=== PATIENT | female | born 1950 | race Caucasian/White ===

== ENCOUNTER → 2017-03-11 | Outpatient (CLI) | payer OTHER ==
--- NOTE | 2017-03-11 09:19 | CT ---
EXAMINATION TYPE: CT soft tissue neck wo con DATE OF EXAM: 03/11/2017 HISTORY: Dysphagia, something caught in throat near right neck base per patient. COMPARISON: NONE CT DLP: 547 mGycm. Automated Exposure Control for Dose Reduction was Utilized. TECHNIQUE: CT scan of the neck is performed without IV contrast due to iodine allergy. FINDINGS: Exam is noted suboptimal due to lack of IV contrast which limits evaluation for mucosal les ions and neck adenopathy. Airway: Thyroid is slightly heterogeneous and upper limits of normal in size. Airway is grossly paten t. There is 3 mm calcified nodule left upper lobe on axial image 66. Mild apical scarring is present bilaterally. Parotid/submandibular glands: No gross abnormality seen. Carotid/Vascular Structures: No suspicious calcified plaque at carotid bulb level bilaterally. Osseous Structures: There is grade 1 retrolisthesis of C5 on C6. There is moderate to severe spurring and disc space narrowing at this level. There is moderate disc space narrowing and mild spurring at C6-C7 level. Review of axial images shows uncovertebral facet degenerative changes bilaterally throug hout the cervical spine. Other: Visualized portion of proximal esophagus is felt within normal limits. No suspicious greater t jackson 1 cm neck adenopathy is clearly seen bilaterally. There is streak artifact from multiple cavitary fillings and root canals in the maxillary and mandibular teeth limiting evaluation at this level at the floor of mouth. IMPRESSION: No significant abnormality is seen to account for patient's symptoms.
== END | disposition home or self-care (01) ==
LOC: RADCTMAIN 07:09
PROVIDERS: ATTEND Otolaryngology
DX: R13.10 Dysphagia, unspecified (principal)
CPT/HCPCS: 70490

== ENCOUNTER → 2018-03-06 | Day surgery (SDC) | payer MEDICARE ==
[2018-03-03 11:11] VITALS: BMI 26.6
[~2018-03-06] MED LIST: BUPIVACAIN-EPI 0.5%-1:200,000 30 ML VIAL SQ ONE; DEXAMETHASONE SOD PHOS (MDV) 100 MG/10 ML VIAL ONE; DEXAMETHASONE SOD PHOSPHATE 10 MG/ML 1 ML VIAL IV ONE; EPINEPHrine 1 MG/ML (MDV) 30 ML VIAL IRRIGATION ONE; FAMOTIDINE 20 MG/2 ML VIAL IVP ONE; FLUORESCEIN STRIPS 1 MG STRIP MISCELLANE ONE; LACTATED RINGERS 1,000 ML IV SCH; LIDOCAINE 1% 20 ML VIAL (10MG/ML) FOR IV START INTRADERMA ONE; LIDOCAINE 1% INJ 10MG/ML (20 ML MDV) ONE; LIDOCAINE 1%-EPI 1:100,000 20 ML VIAL SQ ONE; MELOXICAM 7.5 MG TAB PO ONE; MIDAZOLAM 2 MG/2 ML VIAL IV PRN; MIDAZOLAM 2 MG/2 ML VIAL ONE; ONDANSETRON 4 MG/2 ML VIAL IVP ONE; PROPOFOL 10 MG/ML 20 ML VIAL IV ONE; SODIUM CHLORIDE 0.9% 1,000 ML IV ONE; SUCCINYLCHOLINE CHLORIDE 100 MG/5 ML SYR IV ONE; ceFAZolin IN SWFI 2 GM/20 ML SYRINGE IVP ONE; fentaNYL (PF) 50 MCG/ML 2 ML AMP ONE; metroNIDAZOLE-NS PMX 500 MG in SALINE 1 100ML.BAG IVPB ONE
[2018-03-06] MEDS: OXYMETAZOLINE 0.05% NASL SPRAY 1 SPRAY BOTTLE EA NOSTRIL SCH ×5 (10:18→10:41)
[2018-03-06 12:17] VITALS: TEMP 97
[2018-03-06] MEDS: fentaNYL (PF) 50 MCG/ML 2 ML AMP IV PRN ×2 (12:32→12:43)
--- NOTE | 2018-03-06 12:38 | P.OP ---
Date of Procedure: 03/06/18 Preoperative Diagnosis: Left nasal mass i.e. left inferior turbinate Recurring epistaxis Postoperative Diagnosis: Same Procedure(s) Performed: Endoscopic excisional biopsy of left nasal mass Anesthesia: ILEANAA Surgeon: Eladio Vang Estimated Blood Loss (ml): 0 Pathology: other (Left nasal mass) Condition: stable Disposition: PACU Indications for Procedure: Patient was having recurring epistaxis and was found have a left nasal mass surgical removal was recommended for treatment for biopsy purposes Operative Findings: Left nasal mass noted on the left inferior turbinate Description of Procedure: This patient underwent a general anesthetic and the nose was topically decongested. We entered the nose with a 0 Santiago vicki endoscope and a mass was noted on the left inferior turbinate. This was removed surgically under endoscopic visualization with a up-biting Blakesley and hemostasis was obtained with use of electrocoagulation. Utilized an insulated needle for coagulation of the surgical site for hemostasis purposes. The specimen was sent for pathology and hemostasis was complete. Patient tolerated this well and follow- up will be in one week. No packing was placed
[2018-03-06 13:17] VITALS: RESP 16
[2018-03-06 13:26] VITALS: BP 134/78; PULSE 67
== END | disposition home or self-care (01) ==
LOC: OR 09:06
PROVIDERS: ATTEND Otolaryngology
DX: R04.0 Epistaxis (principal); D18.09 Hemangioma of other sites; M19.90 Unspecified osteoarthritis, unspecified site; H93.19 Tinnitus, unspecified ear; Z79.2 Long term (current) use of antibiotics; E78.5 Hyperlipidemia, unspecified; Z87.891 Personal history of nicotine dependence; Z79.51 Long term (current) use of inhaled steroids; Z79.899 Other long term (current) drug therapy; Z91.041 Radiographic dye allergy status; Z88.7 Allergy status to serum and vaccine; Z88.8 Allergy status to other drugs, medicaments and biological substances; Z91.018 Allergy to other foods
CPT/HCPCS: 88305; 31237; J0171; J2250; J1100 ×2; J2405; J2001; J3010; J0330; J2704; J0690

== ENCOUNTER → 2018-04-29 | Outpatient (CLI) | payer MEDICARE ==
--- NOTE | 2018-04-29 09:24 | MM ---
Reason for exam: clinical finding. Last mammogram was performed 1 year ago. History: Patient is postmenopausal and history of other cancer. Family history of breast cancer in maternal aunt at age 65 and breast cancer in paternal aunt. Took estrogen for 22 years beginning at age 38. Physical Findings: Nurse did not find any significant physical abnormalities on exam. MG 3D Diag Mammo W/Cad YAKOV Bilateral CC and MLO view(s) were taken. Prior study comparison: April 25, 2017, bilateral MG 3d screening mammo w/cad. March 29, 2016, bilateral MG 3d screening mammo w/cad. There are scattered fibroglandular densities. There is no discrete abnormality right breast. No significant new findings when compared with previous films. These results were verbally communicated with the patient and result sheet given to the patient on 04/29/18. ASSESSMENT: Negative, BI-RAD 1 RECOMMENDATION: Routine screening mammogram of both breasts in 1 year.
== END | disposition home or self-care (01) ==
LOC: RADMAMWWP 07:47
PROVIDERS: ATTEND Family Medicine
DX: N63.10 Unspecified lump in the right breast, unspecified quadrant (principal)
CPT/HCPCS: 77066; G0279; 77062

== ENCOUNTER → 2018-12-11 | Outpatient (CLI) | payer MEDICARE ==
--- NOTE | 2018-12-11 08:37 | FL ---
EXAMINATION: Cervical and Thoracic Esophagram DATE OF EXAM: 12/11/2018 CLINICAL INDICATION: 68-year-old female with dysphagia. Complaining of food stuck in the upper esopha trupti. Recent scope showed inflamed tonsil tissue. Total images: 31. Total fluoroscopy time: 1 minute 32 seconds. COMPARISON: 07/21/2015 FINDINGS: The swallowing mechanism is normal. There is mild to moderate disc/endplate degenerative change mid t o lower cervical spine with mild anterior endplate spondylosis resulting in mild impressions on to th e posterior wall of the cervical esophagus. Otherwise, the hypopharyngeal anatomy is preserved. No fi lling defect within the vallecular space. The cervical and thoracic portions have a normal course and caliber. Mild tertiary peristaltic contractions are demonstrated. Primary and secondary peristaltic waves are slowed but appear intact. Mucosa is normal and no persistent filling defect is encountered. There is a tiny hiatal hernia. An episode of severe spontaneous gastroesophageal reflux is seen when the patient is an CARSON position. The contrast column reaches the upper thorax. IMPRESSION: 1. Tiny hiatal hernia with a spontaneous episode of severe gastroesophageal reflux to the upper thora x. 2. Anterior endplate spondylosis mid to lower cervical spine causing mild impressions onto the park warden ior wall of the cervical esophagus. 3. Mild dysmotility.
== END | disposition home or self-care (01) ==
LOC: RADUSWWP 07:48
PROVIDERS: ATTEND Otolaryngology
DX: K44.9 Diaphragmatic hernia without obstruction or gangrene (principal); K21.9 Gastro-esophageal reflux disease without esophagitis; K22.4 Dyskinesia of esophagus; Z91.041 Radiographic dye allergy status
CPT/HCPCS: 74220

== ENCOUNTER → 2019-03-25 | Outpatient (CLI) | payer MEDICARE ==
--- NOTE | 2019-03-25 14:53 | CT ---
EXAMINATION TYPE: CT soft tissue neck wo con DATE OF EXAM: 03/25/2019 HISTORY: Sore throat x couple of months. Vallecular mass per order. COMPARISON: NONE CT DLP: 291.8 mGycm. Automated Exposure Control for Dose Reduction was Utilized. TECHNIQUE: CT scan of the neck is performed without IV contrast, axial images are obtained, coronal and sagittal reformatted images are reviewed. FINDINGS: Lack of IV contrast is noted to Limited evaluation for mucosal lesions and subcentimeter ad enopathy Airway: Nasopharyngeal or oropharyngeal airways are patent. The epiglottis and vallecula appears wit hin normal limits seen best sagittal image 50. Piriform sinuses are symmetric axial image 46. Hypopha ryngeal airway is patent. Adjacent thyroid gland is within normal limits. Upper lungs are clear. Ther e are 2 calcified nodules are granulomas axial images 11 and 12 in the left upper lung. Parotid/subma ndibular glands: No gross abnormality seen. Carotid/Vascular Structures: No significant abnormality on noncontrast study Osseous Structures: Persistent grade 1 retrolisthesis C5 on C6. Persistent moderate to severe disc sp caroline narrowing at this level. Persistent moderate disc space narrowing C6-C7 level. Mild to moderate s purring at both levels redemonstrated. Other: Scattered prominent but subcentimeter lymph nodes throughout the neck bilaterally. Symmetric m aintenance of parapharyngeal fat axial image 65 noted. IMPRESSION: Primary vallecular mass not identified. No definitive adenopathy. No significant change f rom prior.
== END ==
LOC: RADCTMAIN 14:28
PROVIDERS: ATTEND Otolaryngology
DX: R22.1 Localized swelling, mass and lump, neck (principal)
CPT/HCPCS: 70490

== ENCOUNTER → 2019-03-25 | Outpatient (CLI) | payer MEDICARE ==
[2019-03-25 18:46] LABS: Rheumatoid Factor 9 IU/mL (0-15)
== END | disposition home or self-care (01) ==
LOC: LABWHC1 14:15
PROVIDERS: ATTEND Otolaryngology
DX: R53.83 Other fatigue (principal); M19.90 Unspecified osteoarthritis, unspecified site
CPT/HCPCS: 36415; 86038; 86431

== ENCOUNTER → 2019-06-19 | Outpatient (CLI) | payer MEDICARE ==
--- NOTE | 2019-06-19 13:03 | MM ---
Reason for exam: screening (asymptomatic). Last mammogram was performed 1 year and 2 months ago. History: Patient is postmenopausal and history of other cancer. Family history of breast cancer in maternal aunt at age 65 and breast cancer in paternal aunt. Took estrogen for 22 years beginning at age 38. Physical Findings: A clinical breast exam by your physician is recommended on an annual basis and results should be correlated with mammographic findings. MG 3D Screening Mammo W/Cad Bilateral CC and MLO view(s) were taken. Prior study comparison: April 29, 2018, bilateral MG 3d diag mammo w/cad YAKOV. April 25, 2017, bilateral MG 3d screening mammo w/cad. The breast tissue is heterogeneously dense. This may lower the sensitivity of mammography. There is no discrete abnormality. ASSESSMENT: Negative, BI-RAD 1 RECOMMENDATION: Routine screening mammogram of both breasts in 1 year.
== END | disposition home or self-care (01) ==
LOC: RADMAMWWP 07:31
PROVIDERS: ATTEND Family Medicine
DX: Z12.31 Encounter for screening mammogram for malignant neoplasm of breast (principal)
CPT/HCPCS: 77063; 77067

== ENCOUNTER 2019-07-22 10:05 | Day surgery (SDC) | payer MEDICARE ==
[2019-07-10 09:41] VITALS: BMI 27.4
[~2019-07-22 10:05] MED LIST changes: -BUPIVACAIN-EPI 0.5%-1:200,000 30 ML VIAL SQ ONE; -DEXAMETHASONE SOD PHOS (MDV) 100 MG/10 ML VIAL ONE; -DEXAMETHASONE SOD PHOSPHATE 10 MG/ML 1 ML VIAL IV ONE; -EPINEPHrine 1 MG/ML (MDV) 30 ML VIAL IRRIGATION ONE; -FAMOTIDINE 20 MG/2 ML VIAL IVP ONE; -FLUORESCEIN STRIPS 1 MG STRIP MISCELLANE ONE; +LIDOCAINE 1% (10MG/ML) FOR IV START INTRADERMA PRN; -LIDOCAINE 1% 20 ML VIAL (10MG/ML) FOR IV START INTRADERMA ONE; -LIDOCAINE 1% INJ 10MG/ML (20 ML MDV) ONE; -LIDOCAINE 1%-EPI 1:100,000 20 ML VIAL SQ ONE; -MELOXICAM 7.5 MG TAB PO ONE; -MIDAZOLAM 2 MG/2 ML VIAL IV PRN; -MIDAZOLAM 2 MG/2 ML VIAL ONE; -ONDANSETRON 4 MG/2 ML VIAL IVP ONE; -PROPOFOL 10 MG/ML 20 ML VIAL IV ONE; -SODIUM CHLORIDE 0.9% 1,000 ML IV ONE; -SUCCINYLCHOLINE CHLORIDE 100 MG/5 ML SYR IV ONE; -ceFAZolin IN SWFI 2 GM/20 ML SYRINGE IVP ONE; -fentaNYL (PF) 50 MCG/ML 2 ML AMP ONE; -metroNIDAZOLE-NS PMX 500 MG in SALINE 1 100ML.BAG IVPB ONE
[2019-07-22 11:11] VITALS: RESP 16; TEMP 98.5
[2019-07-22] MEDS ORDERED: LIDOCAINE 1% INJ 10MG/ML (20 ML MDV) ONE (11:12)
[2019-07-22] MEDS ORDERED: PROPOFOL 10 MG/ML 20 ML VIAL IV ONE (11:12)
--- NOTE | 2019-07-22 11:21 | P.GSHP ---
History of Present Illness H&P Date: 07/22/19 Chief Complaint: GERD, sore throat Patient here today for upper endoscopy. Patient with chronic reflux. She has been taking Prevacid for the last 5-6 years. Mild dysphasia occasionally. No rectal bleeding or melena. Past Medical History Past Medical History: Hyperlipidemia Additional Past Medical History / Comment(s): SEASONAL ALLERGIES, History of Any Multi-Drug Resistant Organisms: None Reported Past Surgical History: Bladder Surgery, Hernia Repair, Hysterectomy, Orthopedic Surgery, Tonsillectomy Additional Past Surgical History / Comment(s): HIATAL HERNIA, BLADDER SUSPENSION, RT KNEE ARTHROSCOPY., DENTAL IMPLANTS UNDER ANESTHESIA, COLONOSCOPY, EGD Past Anesthesia/Blood Transfusion Reactions: Family History of Problems w/ Anesthesia, Postoperative Nausea & Vomiting (PONV) Additional Past Anesthesia/Blood Transfusion Reaction / Comment(s): PTS FATHER HAS PONV. Smoking Status: Former smoker - Past Family History Mother Family Medical History: No Reported History Medications and Allergies Home Medications Medication Instructions Recorded Confirmed Type ALPRAZolam [Xanax] 0.5 mg PO HS 03/05/15 07/22/19 History Montelukast [Singulair] 10 mg PO HS 03/03/18 07/22/19 History Lansoprazole [Prevacid] 30 mg PO BID 07/10/19 07/22/19 History Latanoprost/Pf [Latanoprost 0.005% 1 drop RIGHT EYE HS 07/10/19 07/22/19 History Eye Drop] Progesterone, Micronized 100 mg PO HS 07/10/19 07/22/19 History [Progesterone] Simvastatin [Zocor] 10 mg PO HS 07/10/19 07/22/19 History Allergies Allergy/AdvReac Type Severity Reaction Status Date / Time influenza virus vaccine, Allergy Unknown Rash/Hives Verified 07/22/19 11:12 specific [influenza virus vacc,specific] Iodinated Contrast Media Allergy Rash/Hives Verified 07/22/19 11:12 IV CONTRAST DYE Allergy Unknown Rash/Hives Uncoded 07/22/19 11:12 Surgical - Exam Vital Signs Temp Pulse Resp BP Pulse Ox 98.5 F 78 16 118/66 97 07/22/19 10:50 07/22/19 10:50 07/22/19 10:50 07/22/19 10:50 07/22/19 10:50 Physical exam: General: Well-developed, well-nourished HEENT: Normocephalic, sclerae nonicteric Abdomen: Nontender, nondistended Extremities: No edema Neuro: Alert and oriented Assessment and Plan (1) GERD (gastroesophageal reflux disease) Narrative/Plan: Will proceed with upper endoscopy. Current Visit: Yes Status: Acute Code(s): K21.9 - GASTRO-ESOPHAGEAL REFLUX DISEASE WITHOUT ESOPHAGITIS SNOMED Code(s): 956586732
--- NOTE | 2019-07-22 11:40 | P.PCN ---
Date of Procedure: 07/22/19 Procedure(s) Performed: Preoperative Dx: GERD, dysphagia Postoperative Dx: Hiatal hernia, mild gastritis Procedure: EGD with Bx Anesthesia: Sedation Endoscopist: Dr. Aguilar Specimens: Antrum Endoscopic Procedure: The patient was on the endoscopy table in the left decubitus position. The Olympus gastroscope was inserted into the oropharynx and passed under direct visualization to the region of the third portion of the duodenum. From that point the scope was slowly withdrawn inspecting all surfaces carefully. There were no neoplastic inflammatory or polypoid lesions throughout the duodenum. The pylorus was widely patent. The stomach was carefully inspected. There was mild gastritis present. A biopsy of the antrum took place to rule out H. pylori. Retroflexion revealed a hiatal hernia. As the scope was advancing through the esophagus into the proximal stomach initially it appeared that the patient may have a large hiatal hernia with a partly intrathoracic stomach. Given the location and the scope for the GE junction at 34 cm that would support the findings of a large hiatal hernia. It was difficult to visualize the diaphragmatic hiatus with certainty therefore heart to say whether this was a small or large hiatal hernia. Looking back at previous CT abdomen from 2014 there was no hiatal hernia at that time. The esophagus was then carefully examined. There was minimal inflammatory changes of the GE junction which was non-circumferential. The remainder the esophagus appear normal. The patient was then taken to the recovery room in stable condition per anesthesia guidelines. Recommendations: Again given the endoscopic findings difficult to say if the patient has a small or large hiatal hernia. She did have a tiny hiatal hernia described on upper GI last summer. We'll consider CT abdomen to better evaluate the diaphragmatic hiatus. Continue antiacids for now.
[2019-07-22 11:56] VITALS: BP 123/77; PULSE 71
== END 2019-07-22 12:27 | disposition home or self-care (01) ==
LOC: ORWHC2ENDO 10:05
PROVIDERS: ATTEND Surgery
DX: K21.9 Gastro-esophageal reflux disease without esophagitis (principal); K29.50 Unspecified chronic gastritis without bleeding; K31.9 Disease of stomach and duodenum, unspecified; K44.9 Diaphragmatic hernia without obstruction or gangrene; J02.9 Acute pharyngitis, unspecified; E78.5 Hyperlipidemia, unspecified; J30.2 Other seasonal allergic rhinitis; F39 Unspecified mood [affective] disorder; Z98.890 Other specified postprocedural states; Z90.710 Acquired absence of both cervix and uterus; Z90.89 Acquired absence of other organs; Z84.89 Family history of other specified conditions; Z87.891 Personal history of nicotine dependence; Z79.899 Other long term (current) drug therapy; Z79.890 Hormone replacement therapy; Z88.7 Allergy status to serum and vaccine; Z91.041 Radiographic dye allergy status; Z98.811 Dental restoration status; Z91.89 Other specified personal risk factors, not elsewhere classified
CPT/HCPCS: 43239; J2001; J2704; 88305

== ENCOUNTER → 2020-01-04 | Outpatient (CLI) | payer MEDICARE ==
--- NOTE | 2020-01-04 09:30 | US ---
EXAMINATION TYPE: US abdomen complete DATE OF EXAM: 01/04/2020 COMPARISON: US 03/06/2016, CT 03/04/2015 CLINICAL HISTORY: R10.11 Right upper quadrant pain. EXAM MEASUREMENTS: Liver Length: 18.4 cm Gallbladder Wall: 0.2 cm CBD: 0.5 cm Spleen: 9.7 cm Right Kidney: 10.5 x 4.3 x 5.1 cm Left Kidney: 11.5 x 5.4 x 5.6 cm Pancreas: wnl as visualized Liver: Multiple small cystic areas visualized, largest measuring 1.1 cm. Measuring upper limits of n ormal Gallbladder: wnl Evidence for sonographic Medrano's sign: No CBD: wnl Spleen: wnl Right Kidney: No hydronephrosis. Possible angiomyolipoma measuring 0.6 cm Left Kidney: No hydronephrosis. Possible angiomyolipoma measuring 0.9 cm Upper IVC: wnl Abd Aorta: wnl The liver is homogenous. The intrahepatic portion of the IVC and proximal abdominal aorta are within normal limits. There is no evidence of cholelithiasis. Common bile duct is unremarkable. The visu alized portions of the pancreas are homogenous. The spleen is unremarkable. Kidneys are symmetric a nd free of hydronephrosis. IMPRESSION: Small hepatic cysts.
== END | disposition home or self-care (01) ==
LOC: RADUSWWP 08:05
PROVIDERS: ATTEND Surgery
DX: K76.89 Other specified diseases of liver (principal); Z91.041 Radiographic dye allergy status
CPT/HCPCS: 76700

== ENCOUNTER → 2020-06-29 | Outpatient (CLI) | payer MEDICARE ==
--- NOTE | 2020-06-30 14:24 | MM ---
Reason for exam: screening (asymptomatic). Last mammogram was performed 1 year ago. History: Patient is postmenopausal and history of other cancer. Family history of breast cancer in maternal aunt at age 65 and breast cancer in paternal aunt. Took estrogen for 22 years beginning at age 38. Physical Findings: A clinical breast exam by your physician is recommended on an annual basis and results should be correlated with mammographic findings. MG 3D Screening Mammo W/Cad Bilateral CC and MLO view(s) were taken. Prior study comparison: June 19, 2019, bilateral MG 3d screening mammo w/cad. April 29, 2018, bilateral MG 3d diag mammo w/cad YAKOV. There are scattered fibroglandular densities. No significant changes when compared with prior studies. ASSESSMENT: Negative, BI-RAD 1 RECOMMENDATION: Routine screening mammogram of both breasts in 1 year.
== END | disposition home or self-care (01) ==
LOC: RADMAMWWP 07:33
PROVIDERS: ATTEND Obstetrics & Gynecology
DX: Z12.31 Encounter for screening mammogram for malignant neoplasm of breast (principal)
CPT/HCPCS: 77063; 77067

== ENCOUNTER → 2021-06-08 | Outpatient (CLI) | payer MEDICARE ==
--- NOTE | 2021-06-08 14:05 | CT ---
EXAMINATION TYPE: CT sinus wo con DATE OF EXAM: 06/08/2021 COMPARISON: None HISTORY: Pain with palpitation left maxillary region. Tooth with cracked root repaired in that region . CT DLP: 558 mGycm. Automated Exposure Control for Dose Reduction was Utilized. TECHNIQUE: CT scan of the sinuses is performed without contrast, axial images are obtained, coronal r eformatted images are also reviewed. FINDINGS: The paranasal sinuses including the frontal, ethmoid, sphenoid, and maxillary sinuses bila terally are well-aerated without abnormal opacification. The ostiomeatal complex is patent bilateral ly on the coronal images. Visualized portion of mastoid air cells show no abnormal opacification. The globes are intact bilate rally. Hyperostosis of the calvarium. IMPRESSION: The sinuses are clear and the ostiomeatal complex is patent bilaterally.
== END | disposition home or self-care (01) ==
LOC: RADCTMAIN 12:55
PROVIDERS: ATTEND Otolaryngology
DX: J32.9 Chronic sinusitis, unspecified (principal)
CPT/HCPCS: 70486

== ENCOUNTER → 2021-07-07 | Outpatient (CLI) | payer MEDICARE ==
--- NOTE | 2021-07-10 13:58 | MM ---
Reason for exam: screening (asymptomatic). Last mammogram was performed 1 year ago. History: Patient is postmenopausal and history of other cancer. Family history of breast cancer in maternal aunt at age 65 and breast cancer in paternal aunt. Taking estrogen for 22 years beginning at age 38. Physical Findings: A clinical breast exam by your physician is recommended on an annual basis and results should be correlated with mammographic findings. MG 3D Screening Mammo W/Cad Bilateral CC and MLO view(s) were taken. Prior study comparison: June 29, 2020, bilateral MG 3d screening mammo w/cad. June 19, 2019, bilateral MG 3d screening mammo w/cad. Focal asymmetry in the right breast, stable. ASSESSMENT: Benign, BI-RAD 2 RECOMMENDATION: Routine screening mammogram of both breasts in 1 year.
== END | disposition home or self-care (01) ==
LOC: RADMAMWWP 13:10
PROVIDERS: ATTEND Obstetrics & Gynecology
DX: Z12.31 Encounter for screening mammogram for malignant neoplasm of breast (principal)
CPT/HCPCS: 77063; 77067

== ENCOUNTER → 2021-09-25 | Outpatient (CLI) | payer MEDICARE ==
--- NOTE | 2021-09-25 16:13 | BD ---
EXAMINATION TYPE: Axial Bone Density DATE OF EXAM: 09/25/2021 COMPARISON: 06/21/2016 CLINICAL HISTORY: 70 years year old Female. ICD-10 CODE: Z78.0 Post menopausal without HRT Height: 65 IN Weight: 165 LBS FRAX RISK QUESTIONS: Secondary Osteoporosis: 3. Menopause before 45: TOTAL HYST AGE 35 RISK FACTORS HISTORY OF: Family History of Osteoporosis: YES MOTHER AND FATHER Active: YES Diet low in dairy products/other sources of calcium: YES Postmenopausal woman: TOTAL HYST AGE 35 Take estrogen and/or progesterone medications: YES How long: PELLET FOR 2 YEARS ; ERT 5 YEARS MEDICATIONS: Additional Medications: VIT D, XANAX, WELLBUTRIN, STOMACH MEDS, SIMVASTATIN, EXAM MEASUREMENTS: Bone mineral densitometry was performed using the Modanisa System. Bone mineral density as measured about the Lumbar spine is: ----- L1-L4(G/cm2): 1.166 T Score Values are as follows: ----- L1: -0.2 ----- L2: -0.4 ----- L3: 0.3 ----- L4: -0.4 ----- L1-L4: -0.1 Bone mineral density has: Increased 3.7% since study of: 06/21/2016 Bone mineral density about the R hip (g/cm2): 0.882 Bone mineral density about the L hip (g/cm2): 0.844 T Score values are as follows: -----R Neck: -1.1 -----L Neck: -1.4 -----R Total: -0.9 -----L Total: -1.5 Bone mineral density has: Decreased -5.8% since study of: 06/21/2016 FRAX%s: The graph provided illustrates a 9.8 chance for a major osteoporotic fx and a 1.4 chance for the hips probability for fx in 10 years time. IMPRESSION: Osteopenia (T Score between -2.5 and -1). There is slightly increased risk of fracture and the patient may be considered for treatment. Re-Screen 2-5 years. NOTE: T-SCORE=SD OF THE YOUNG ADULT MEAN.
== END | disposition home or self-care (01) ==
LOC: RADBDWWP 07:49
PROVIDERS: ATTEND Family Medicine
DX: Z12.31 Encounter for screening mammogram for malignant neoplasm of breast (principal); Z78.0 Asymptomatic menopausal state; Z80.3 Family history of malignant neoplasm of breast
CPT/HCPCS: 77080

== ENCOUNTER → 2022-04-10 | Outpatient (CLI) | payer MEDICARE ==
--- NOTE | 2022-04-10 09:52 | US ---
EXAMINATION TYPE: US abdomen limited DATE OF EXAM: 04/10/2022 COMPARISON: US dated 01/04/2020 CLINICAL HISTORY: R10.31 RUQ PAIN. TECHNIQUE: Multiple sonographic images of the right upper quadrant are obtained. FINDINGS: EXAM MEASUREMENTS: Liver Length: 12.3 cm Gallbladder Wall: 0.3 cm CBD: 0.5 cm Right Kidney: 10.6 x 4.1 x 4.9 cm TIME CHECKER NOTES:Patient states ongoing symptoms for over 2 years, has never had a HIDA scan. Pancreas: visualized portions wnl Liver: small cysts noted, largest measures 1.2 x 0.9 x 1.0 cm. Gallbladder: No stones seen, distended at 10.3 cm Evidence for sonographic Medrano's sign: Yes CBD: wnl Right Kidney: No hydronephrosis or masses seen IMPRESSION: 1. No evidence for acute process, no gallstones identified. The gallbladder is distended could be se condary to fasting state. 2. Hepatic cyst.
== END | disposition home or self-care (01) ==
LOC: RADUSWWP 07:56
PROVIDERS: ATTEND Family Medicine
DX: R10.31 Right lower quadrant pain (principal)
CPT/HCPCS: 76705

== ENCOUNTER → 2022-04-20 | Outpatient (CLI) | payer MEDICARE ==
--- NOTE | 2022-04-20 09:15 | NM ---
EXAMINATION TYPE: NM hepatobiliary w EF DATE OF EXAM: 04/20/2022 COMPARISON: NONE HISTORY: R10.31 RIGHT LOWER QUADRANT PAIN TECHNIQUE: After the intravenous administration of 4.6 mCi Tc 99m Mebrofenin hepatobiliary scintigrap hy is performed. Immediate images post injection. FINDINGS: There is satisfactory initial accumulation of tracer by the liver. The gallbladder is visualized wit hin 12 minutes. The small bowel activity is noted within 24 minutes. At one hour 8 ounces of oral e nsure plus is given to mimic CCK and gallbladder ejection fraction is calculated at 76 %, in the norm al range. Therefore there is no scintigraphic evidence of cystic or common bile duct obstruction to suggest acute cholecystitis or gallbladder dyskinesia. IMPRESSION: Exam is within normal limits.
== END | disposition home or self-care (01) ==
LOC: RADNMMAIN 06:47
PROVIDERS: ATTEND Family Medicine
DX: R10.31 Right lower quadrant pain (principal)
CPT/HCPCS: 78226; A9537

== ENCOUNTER → 2022-10-01 | Outpatient (CLI) | payer MEDICARE ==
--- NOTE | 2022-10-02 11:22 | MM ---
Reason for Exam: Screening (asymptomatic). Last mammogram was performed 1 year(s) and 3 month(s) ago. Patient History: Menarche at age 13. First Full-Term at age 19. Left ovary removed at age 36. Right ovary removed at age 36. Hysterectomy at age 36. Postmenopausal. Currently using Estrogen, beginning at age 38 for 22 years. Paternal aunt had breast cancer, age 75. Maternal aunt had breast cancer, age 65. Risk Values: Chantelle 5 year model risk: 1.3%. NCI Lifetime model risk: 3.5%. Prior Study Comparison: 06/19/2019 Bilateral Screening Mammogram, [facility]. 06/29/2020 Bilateral Screening Mammogram, [facility]. 07/07/2021 Bilateral Screening Mammogram, [facility]. Tissue Density: There are scattered fibroglandular densities. Findings: Analyzed By CAD. There is no suspicious group of microcalcifications or new suspicious mass in either breast. Overall Assessment: Negative, BI-RAD 1 Management: Screening Mammogram of both breasts in 1 year. A clinical breast exam by your physician is recommended on an annual basis and results should be correlated with mammographic findings. [facility] will attempt to contact patient to return for supplemental views and ultrasound if indicated. Electronically signed and approved by: Manny Bruno DO
== END | disposition home or self-care (01) ==
LOC: RADMAMWWP 08:12
PROVIDERS: ATTEND Family Medicine
DX: Z12.31 Encounter for screening mammogram for malignant neoplasm of breast (principal); Z78.0 Asymptomatic menopausal state; Z80.3 Family history of malignant neoplasm of breast
CPT/HCPCS: 77063; 77067

== ENCOUNTER → 2022-11-21 | Outpatient (CLI) | payer MEDICARE ==
--- NOTE | 2022-11-21 12:24 | US ---
EXAMINATION TYPE: US abdomen complete DATE OF EXAM: 11/21/2022 COMPARISON: NONE CLINICAL INDICATION: Female, 72 years old with history of R10.84 GENERALIZED ABDOMINAL PAIN; Chronic RUQ pain TECHNIQUE: Multiple sonographic images of the abdomen are obtained. FINDINGS: EXAM MEASUREMENTS: Liver Length: 16.8 cm Gallbladder Wall: 0.2 cm CBD: 6.8 mm Spleen: 10.1 cm Right Kidney: 9.2 x 4.6 x 4.0 cm Left Kidney: 10.7 x 4.9 x 5.5 cm Pancreas: wnl Liver: wnl Gallbladder: wnl Evidence for sonographic Medrano's sign: no CBD: Borderline to mildly dilated. Spleen: wnl Right Kidney: wnl Left Kidney: wnl Upper IVC: wnl Abd Aorta: wnl IMPRESSION: 1. Borderline to mildly dilated bile duct, acceptable given patient's age. Correlate with alkaline ph osphatase and bilirubin levels. 2. No gallstones or other specific abnormality seen.
== END | disposition home or self-care (01) ==
LOC: RADUSWWP 06:51
PROVIDERS: ATTEND Student in an Organized Health Care Education/Training Program
DX: K83.8 Other specified diseases of biliary tract (principal); R10.84 Generalized abdominal pain
CPT/HCPCS: 76700

== ENCOUNTER → 2023-10-03 | Outpatient (CLI) | payer MEDICARE ==
--- NOTE | 2023-10-04 14:12 | MM ---
Reason for Exam: Screening (asymptomatic). Last screening mammogram was performed 12 month(s) ago. Patient History: Menarche at age 13. First Full-Term at age 19. Left ovary removed at age 36. Right ovary removed at age 36. Hysterectomy at age 36. Postmenopausal. Currently using Estrogen, beginning at age 38 for 22 years. Paternal aunt had breast cancer, age 75. Maternal aunt had breast cancer, age 65. Risk Values: Chantelle 5 year model risk: 1.3%. NCI Lifetime model risk: 3.3%. Prior Study Comparison: 06/29/2020 Bilateral Screening Mammogram, [facility]. 07/07/2021 Bilateral Screening Mammogram, [facility]. 10/01/2022 Bilateral MG 3D screening mammo w/cad, [facility]. Tissue Density: There are scattered areas of fibroglandular density. Findings: Analyzed By CAD. There is no suspicious group of microcalcifications or new suspicious mass in either breast. Overall Assessment: Benign, BI-RAD 2 Management: Screening Mammogram of both breasts in 1 year. . Patient should continue monthly self-breast exams. A clinical breast exam by your physician is recommended on an annual basis. This exam should not preclude additional follow-up of suspicious palpable abnormalities. Note on Chantelle scores and lifetime risk: 1. A Chantelle score greater than 3% is considered moderate risk. If this is the case, consider specialist referral to assess eligibility for a risk reducing agent. 2. If overall lifetime risk for the development of breast cancer is 20% or higher, the patient may qualify for future screening with alternating mammogram and breast MRI. Electronically signed and approved by: Ben Vail M.D. Radiologis
== END | disposition home or self-care (01) ==
LOC: RADMAMWWP 08:05
PROVIDERS: ATTEND Obstetrics & Gynecology
DX: Z12.31 Encounter for screening mammogram for malignant neoplasm of breast (principal); Z78.0 Asymptomatic menopausal state; Z80.3 Family history of malignant neoplasm of breast
CPT/HCPCS: 77063; 77067

== ENCOUNTER → 2024-10-22 | Outpatient (CLI) | payer MEDICARE ==
--- NOTE | 2024-10-22 11:33 | MM ---
Reason for Exam: Screening (asymptomatic). Last mammogram was performed 1 year(s) and 1 month(s) ago. Patient History: Menarche at age 13. First Full-Term at age 19. Left ovary removed at age 36. Right ovary removed at age 36. Hysterectomy at age 36. Postmenopausal. Currently using Estrogen, beginning at age 38 for 22 years. Paternal aunt had breast cancer, age 75. Paternal aunt had breast cancer, age 65. Risk Values: Chantelle 5 year model risk: 1.3%. NCI Lifetime model risk: 3.1%. Prior Study Comparison: 07/07/2021 Bilateral Screening Mammogram, [facility]. 10/01/2022 Bilateral MG 3D screening mammo w/cad, [facility]. 10/03/2023 Bilateral MG 3D screening mammo w/cad, [facility]. Tissue Density: There are scattered areas of fibroglandular density. Findings: Analyzed By CAD. There is no suspicious group of microcalcifications or new suspicious mass in either breast. Overall Assessment: Negative, BI-RAD 1 Management: Screening Mammogram of both breasts in 1 year. . Patient should continue monthly self-breast exams. A clinical breast exam by your physician is recommended on an annual basis. This exam should not preclude additional follow-up of suspicious palpable abnormalities. Note on Chantelle scores and lifetime risk: 1. A Chantelle score greater than 3% is considered moderate risk. If this is the case, consider specialist referral to assess eligibility for a risk reducing agent. 2. If overall lifetime risk for the development of breast cancer is 20% or higher, the patient may qualify for future screening with alternating mammogram and breast MRI. [facility], , 10/22/2024 11:30 AM. Electronically signed and approved by: Steve Moore M.D.
== END | disposition home or self-care (01) ==
LOC: RADMAMWWP 10:34
PROVIDERS: ATTEND Obstetrics & Gynecology
DX: Z12.31 Encounter for screening mammogram for malignant neoplasm of breast (principal); R92.323 Mammographic fibroglandular density, bilateral breasts; Z78.0 Asymptomatic menopausal state; Z80.3 Family history of malignant neoplasm of breast
CPT/HCPCS: 77063; 77067